=== PATIENT | male | born 1965 | race Caucasian/White ===

== ENCOUNTER 2017-03-12 17:12 | Emergency (ER) | payer OTHER ==
[~2017-03-12] VITALS: Ht 180.3 cm; Wt 90.0 kg
[2017-03-12 21:27] VITALS: BP 146/88
== END 2017-03-12 21:48 | disposition home or self-care (01) ==
LOC: EME 17:12
DX: S00.83XA Contusion of other part of head, initial encounter (principal); F10.129 Alcohol abuse with intoxication, unspecified; W18.30XA Fall on same level, unspecified, initial encounter; F17.200 Nicotine dependence, unspecified, uncomplicated
CPT/HCPCS: 70450; 72125; 99281; 99285

== ENCOUNTER 2017-03-23 20:05 | Emergency (ER) | payer OTHER ==
[~2017-03-23] VITALS: Ht 188 cm; Wt 110.0 kg
[2017-03-24 09:20] VITALS: BP 132/78
== END 2017-03-24 10:45 | disposition home or self-care (01) ==
LOC: EME 20:05
PROC: 0PSHXZZ Reposition Right Radius, External Approach (ICD-10-PCS; principal; 2017-03-23)
PROC: 0PSKXZZ Reposition Right Ulna, External Approach (ICD-10-PCS; principal; 2017-03-23)
DX: S52.531A Colles' fracture of right radius, initial encounter for closed fracture (principal); W18.30XA Fall on same level, unspecified, initial encounter; Z59.0 Homelessness; S02.2XXA Fracture of nasal bones, initial encounter for closed fracture
CPT/HCPCS: 70450; 70486; 73110; 99281; 99285

== ENCOUNTER 2017-03-30 12:07 | Emergency (ER) | payer OTHER ==
[~2017-03-30] VITALS: Ht 188 cm; Wt 110.0 kg
[2017-03-30 12:46] VITALS: BP 146/81
== END 2017-03-30 12:46 ==
LOC: EME 12:07
DX: F10.129 Alcohol abuse with intoxication, unspecified (principal); Z59.0 Homelessness; Z87.891 Personal history of nicotine dependence
CPT/HCPCS: 99281; 99283